=== PATIENT | male | born 1985 | race African-American/Black ===

== ENCOUNTER 2024-06-11 09:54 | Emergency (ER) | payer OTHER, MEDICAID ==
[~2024-06-11] VITALS: Ht 182.9 cm; Wt 117.2 kg
[2024-06-11] MEDS ORDERED: AMLO1TAB23 PO (10:43)
[2024-06-11] MEDS ORDERED: LOSA-534 PO (10:45)
[2024-06-11 10:49] VITALS: BP 168/109; PULSE 73; RESP 18; TEMP 98; O2SAT 97
[2024-06-11] MEDS: LOSARTAN POTASSIUM 50 MG TAB PO ONE (10:55)
== END 2024-06-11 11:05 | disposition home or self-care (01) ==
LOC: ER 09:54
DX: I10 Essential (primary) hypertension (principal); Z76.0 Encounter for issue of repeat prescription

== ENCOUNTER 2024-08-23 11:46 | Emergency (ER) | payer BC, MEDICAID ==
[~2024-08-23] VITALS: Ht 182.9 cm; Wt 114.0 kg
[~2024-08-23 11:46] MED LIST: LOSA-534 PO
[2024-08-23 13:02] LABS: Chloride 111 mmol/L (98-107); Potassium 4.1 mmol/L (3.5-5.1); Sodium 141 mmol/L (136-145)
[2024-08-23 13:03] LABS: Anion Gap 7 (5-15); Calcium 9.8 mg/dL (8.7-10.4); Carbon Dioxide 23 mmol/L (20-31)
[2024-08-23 13:04] LABS: Basophils # (auto) 0.1 10 ^3/uL (0-0.2); Basophils % (auto) 0.5 % (0.0-2.0); Eosinophils # (auto) 0.7 10 ^3/uL (0-0.8); Eosinophils % (auto) 6.2 % (0.0-7.0); Hematocrit 51.1 % (41.0-53.0); Hemoglobin 17.6 g/dL (13.5-17.5); Lymphocytes # (auto) 3.1 10 ^3/uL (0.4-5.4); Lymphocytes % (auto) 26.4 % (10.0-50.0); Mean Corpuscular Hemoglobin 33.4 pg (28.0-32.0); Mean Corpuscular Hgb Conc. 34.4 g/dL (32.0-36.0); Mean Corpuscular Volume 97.1 fL (80.0-100.0); Monocytes # (auto) 0.7 10 ^3/uL (0-1.3); Monocytes % (auto) 6.1 % (0.0-12.0); Neutrophils # (auto) 7.1 10 ^3/uL (1.6-8.6); Neutrophils % (auto) 60.8 % (37.0-80.0); Nucleated Red Blood Cells % 0.1 %; Platelet Count (auto) 342 10^3/uL (140-450); Red Blood Cells 5.26 10^6/uL (4.5-5.90); Red Cell Distribution Width 14.2 % (11.8-14.3); White Blood Cell 11.7 10^3/uL (4.4-10.8)
[2024-08-23 13:08] LABS: Blood Urea Nitrogen 9 mg/dL (9-23); Glucose 124 mg/dL (74-106)
[2024-08-23] MEDS ORDERED: AML5T PO (15:39)
[2024-08-23] MEDS: amLODIPine BESYLATE 5 MG TAB PO ONE (15:55)
[2024-08-23 16:01] VITALS: BP 155/103; PULSE 82; RESP 14; TEMP 98.1; O2SAT 97
== END 2024-08-23 16:08 | disposition home or self-care (01) ==
LOC: ER 11:46
DX: I10 Essential (primary) hypertension (principal)
CPT/HCPCS: 36415; 80048; 84484; 85025